=== PATIENT | female | born 1970 | race Caucasian/White ===

== ENCOUNTER → 2019-05-28 | Outpatient (CLI) | payer BC ==
[2019-05-28] MEDS: IOHEXOL 300MG/ML 150 ML BTL (10:14)
[2019-05-28] MEDS: SOD CHLORIDE 0.9% 100 ML (10:14)
== END | disposition home or self-care (01) ==
LOC: C/S 09:31
DX: R10.2 Pelvic and perineal pain (principal)
CPT/HCPCS: 74177